=== PATIENT | male | born 1995 | race African-American/Black ===

== ENCOUNTER 2017-09-13 12:04 | Emergency (ER) | payer SELFPAY ==
[~2017-09-13] VITALS: Ht 175.3 cm; Wt 77.2 kg
[~2017-09-13 12:04] MED LIST: ADVAIR; ALBUTEROL; SINGULAIR
[2017-09-13] MEDS ORDERED: HYDROCODONE/ACETAMINOPHEN 5-325 MG TABLET PO ONE (13:15)
[2017-09-13 15:10] VITALS: BP 126/70
== END 2017-09-13 15:20 | disposition home or self-care (01) ==
LOC: EMS 12:05
DX: S13.4XXA Sprain of ligaments of cervical spine, initial encounter (principal); R07.89 Other chest pain; R03.0 Elevated blood-pressure reading, without diagnosis of hypertension; M25.551 Pain in right hip; V43.52XA Car driver injured in collision with other type car in traffic accident, initial encounter; Y93.89 Activity, other specified; Y92.89 Other specified places as the place of occurrence of the external cause; Y99.8 Other external cause status
CPT/HCPCS: 71020; 72040; 99284

== ENCOUNTER 2018-07-21 03:15 | Emergency (ER) | payer SELFPAY ==
[~2018-07-21] VITALS: Ht 172.7 cm; Wt 75.0 kg
[2018-07-21 05:33] VITALS: BP 117/79
== END 2018-07-21 05:34 | disposition home or self-care (01) ==
LOC: EMS 03:15
DX: J20.8 Acute bronchitis due to other specified organisms (principal)
CPT/HCPCS: 87430; 99285

== ENCOUNTER 2018-10-08 14:27 | Emergency (ER) | payer MEDICAID ==
[~2018-10-08] VITALS: Ht 177.8 cm; Wt 75.0 kg
[2018-10-08 16:27] VITALS: BP 141/86
== END 2018-10-08 18:09 | disposition left against medical advice (07) ==
LOC: EMS 14:29
DX: R51 Headache (principal); Z53.21 Procedure and treatment not carried out due to patient leaving prior to being seen by health care provider

== ENCOUNTER 2018-10-18 13:53 | Emergency (ER) | payer MEDICAID, OTHER ==
[~2018-10-18] VITALS: Ht 177.8 cm; Wt 77.3 kg
[2018-10-18 17:25] LABS: APPEARANCE,URINE CLEAR (CLEAR); BILIRUBIN,URINE NEGATIVE (NEGATIVE); GLUCOSE, URINE (UA) NEGATIVE (NEGATIVE); KETONES,URINE NEGATIVE (NEGATIVE); LEUKOCYTE ESTERASE ,URINE NEGATIVE (NEGATIVE); NITRATE,URINE NEGATIVE (NEGATIVE); OCCULT BLOOD,URINE TRACE (NEGATIVE); PROTEIN,URINE NEGATIVE (NEGATIVE); UROBILINOGEN,URINE 0.2 mg/dL (<=1.0)
[2018-10-18 17:31] LABS: BASOPHILS % (AUTO) 0.8 % (0.0-2.0); EOSINOPHILS % (AUTO) 2.3 % (1.0-6.0); HEMATOCRIT 47.5 % (41-53); HEMOGLOBIN 16.2 g/dL (13.5-17.5); LYMPHOCYTES # (AUTO) 2.5 K/uL (1.0-4.8); LYMPHOCYTES % (AUTO) 26.1 % (22.0-44.0); MEAN CORPUSCULAR HEMOGLOBIN 29.5 pg (26.0-34.0); MEAN CORPUSCULAR HGB CONC 34.1 G/dL (31.0-37.0); MEAN CORPUSCULAR VOLUME 87 fL (80-100); MONOCYTES # (AUTO) 0.9 K/uL (0.1-1.0); MONOCYTES % (AUTO) 9.7 % (2.0-9.0); NEUTROPHILS # (AUTO) 5.8 K/uL (1.8-7.7); NEUTROPHILS % (AUTO) 61.1 % (40.0-70.0); PLATELET COUNT (AUTO) 271 K/uL (150-450); RED BLOOD CELL COUNT(AUTO) 5.49 MIL/uL (4.50-5.90); RED CELL DISTRIBUTION WIDTH 13.9 % (11.5-14.5)
[2018-10-18 17:42] LABS: BACTERIA,URINE None Seen /HPF (None Seen); RBC,URINE 0-2 /HPF (0-2); SQUAMOUS EPITHELIAL CELL,UR Rare /LPF (None Seen); WBC,URINE 0-2 /HPF (0-5)
[2018-10-18 18:06] LABS: ANION GAP 8 mmol/L (8-16); CALCIUM, TOTAL 9.4 mg/dL (8.8-10.5); CARBON DIOXIDE 31 mmol/L (22-29); CHLORIDE 100 mmol/L (98-107); CREATININE 1.07 mg/dL (0.60-1.30); GLOMERULAR FILTR. RATE CALC > 60 mL/min (>60); GLUCOSE,RANDOM 103 mg/dL (70-110); POTASSIUM 3.7 mmol/L (3.5-5.1); SODIUM SERUM 139 mmol/L (136-145); UREA NITROGEN, BLOOD 18 mg/dL (7-18)
[2018-10-18 18:11] LABS: ALANINE AMINOTRANSFERASE 52 U/L (12-78); ALBUMIN 4.5 g/dL (3.4-5.0); ALKALINE PHOSPHATASE 79 U/L (46-116); ASPARTATE AMINOTRANSFERASE 21 U/L (15-37); BILIRUBIN,TOTAL 0.3 mg/dL (0.1-1.0); LIPASE 183 U/L (73-393); TOTAL PROTEIN, SERUM 8.4 g/dL (6.4-8.2)
[2018-10-18 19:31] VITALS: BP 136/76
== END 2018-10-19 08:38 | disposition home or self-care (01) ==
LOC: EMS 13:54
DX: J06.9 Acute upper respiratory infection, unspecified (principal); R10.12 Left upper quadrant pain; R19.7 Diarrhea, unspecified; J34.89 Other specified disorders of nose and nasal sinuses; Z87.891 Personal history of nicotine dependence
CPT/HCPCS: 86308; 87430